=== PATIENT | female | born 2000 | race Caucasian/White ===

== ENCOUNTER 2025-01-01 19:09 | Emergency (ER) | payer SELFPAY ==
[~2025-01-01] VITALS: Ht 165.1 cm; Wt 61.0 kg
[2025-01-01 19:11] VITALS: O2SAT 98
[2025-01-01 19:52] LABS: CLARITY URINE CLEAR (CLEAR); COLOR URINE YELLOW (YELLOW); GLUCOSE URINE NEGATIVE (NEGATIVE); KETONES URINE NEGATIVE (NEGATIVE); LEUKOCYTE ESTERASE URINE NEGATIVE (NEGATIVE); NITRITE URINE NEGATIVE (NEGATIVE); OCCULT BLOOD URINE NEGATIVE (NEGATIVE); PH URINE 5.5 (4.5-8.0); PROTEIN URINE NEGATIVE (NEGATIVE); SPECIFIC GRAVITY URINE 1.031 (1.005-1.030)
[2025-01-01 21:24] LABS: BASOPHILS % 0.8 % (0.0-2.0); EOSINOPHILS % 1.8 % (0.0-5.0); HEMATOCRIT. 40.9 % (36.0-48.0); HEMOGLOBIN. 14.1 g/dL (12.0-16.0); LYMPHOCYTES % 36.5 % (20.0-50.0); MEAN CORPUSCULAR HGB CONC 34.5 g/dL (31.0-37.0); MEAN CORPUSCULAR VOLUME 92.8 fL (81.0-99.0); MONOCYTES % 5.6 % (2.0-8.0); NEUTROPHILS % 55.3 % (40.0-76.0); PLATELET 310 x1000/uL (130-400); RED BLOOD CELL COUNT 4.41 mill/uL (4.2-5.4); RED CELL DISTRIBUTION WIDTH 13.4 % (11.6-14.6)
[2025-01-01 21:29] LABS: CHLORIDE 105 mEq/L (98-107); POTASSIUM 4.3 mEq/L (3.5-5.1); SODIUM 140 mEq/L (136-145)
[2025-01-01 21:30] LABS: CALCIUM 9.8 mg/dL (8.7-10.4); CARBON DIOXIDE 28 mEq/L (21-32)
[2025-01-01 21:35] LABS: CREATININE 0.9 mg/dL (0.6-1.0); GLUCOSE 109 mg/dL (70-105); HCG SCREEN NEGATIVE; UREA NITROGEN BLOOD 13 mg/dL (9-23)
[2025-01-01 21:37] LABS: ALANINE AMINOTRANSFERASE 24 IU/L (10-49); ALBUMIN 4.3 g/dL (3.2-4.8); ASPARTATE AMINOTRANSFERASE 24 IU/L (<34)
[2025-01-01 21:38] LABS: BILIRUBIN TOTAL 0.3 mg/dL (0.1-1.0); PROTEIN TOTAL 6.9 g/dL (6.0-8.3)
[2025-01-01 21:39] LABS: BILIRUBIN DIRECT < 0.1 mg/dL (<=3.0)
[2025-01-01] MEDS ORDERED: LIDO700A15 TP (21:54)
[2025-01-01] MEDS ORDERED: METH-653 MT (21:54)
[2025-01-01] MEDS ORDERED: IBUP-2028 MT (21:54)
[2025-01-01] MEDS: KETOROLAC 30MG/ML VIAL IM ONE (22:19)
[2025-01-01 22:20] VITALS: BP 135/86; PULSE 70; RESP 16; TEMP 36.8; O2SAT 98
== END 2025-01-01 22:25 | disposition home or self-care (01) ==
LOC: ER 19:09
DX: M47.816 Spondylosis without myelopathy or radiculopathy, lumbar region (principal); M51.26 Other intervertebral disc displacement, lumbar region; Z88.5 Allergy status to narcotic agent
CPT/HCPCS: 36415; 74176; 80048; 80076; 81003; 81025; 84703; 85025; 99284